=== PATIENT | female | born 1980 | race Caucasian/White ===

== ENCOUNTER 2023-03-15 16:46 | Emergency (ER) | payer OTHER, SELFPAY ==
--- NOTE | 2023-03-15 17:11 | ED_ITS ---
HPI - Medical Clearance General Chief complaint: General Medical Stated complaint: medical clearance Time Seen by Provider: 03/15/23 19:12 Source: patient, RN notes reviewed and old records reviewed Mode of arrival: ambulatory History of Present Illness HPI Narrative: 42-year-old female w/PMHx substance abuse on [employer] currently in detox program presenting to the ED for medical clearance. Patient was found with her old Rx for Klonopin that she stopped taking and admits to taking 1 dose for the past 3 days & was sent for medical clearance to return to program. Denies other illicit substances or ETOH, SI or HI MD complaint: medical clearance requested Related Information Allergies Allergy/AdvReac Type Severity Reaction Status Date / Time No Known Allergies Allergy Verified 03/15/23 17:15 Review of Systems 2 Review of Systems: Constitutional: No Fever, No Chills ENT/Mouth: No Ear Pain, No Nasal Congestion, No sore throat, No Rhinorrhea, No Swallowing Difficulty Cardiovascular: No Chest Pain, No SOB Respiratory: No Cough Gastrointestinal: No Nausea, No Vomiting, No Abdominal pain Musculoskeletal: No joint pain, No Myalgias Skin: No Skin Lesions, No rash Neuro: No Weakness Yes all other systems are reviewed and are negative Constitutional: Constitutional: Reports as per [facility] Past Medical History Attestation statement: The following information was validated with the patient. Source: old records reviewed Physical Exam 2 Vital Signs: Vital Signs: Last Vital Signs Temp 96.4 F L 03/15/23 19:15 Pulse 71 03/15/23 19:15 Resp 14 03/15/23 19:15 BP 122/77 03/15/23 19:15 Pulse Ox 99 03/15/23 19:15 O2 Del Method Room Air 03/15/23 19:15 BMI result Body Mass Index 36.4 Const: General: cooperative, healthy appearing and no acute distress O rientation/consciousness: patient oriented x3 Limitations: no limitations HEENT: Head: Yes normal to inspection and Yes atraumatic Ears: hearing grossly normal bilaterally General nose exam: Normal external nose present Face and sinus: Yes normal facial exam Eyes: General: appearance normal, both eyes and all related structures EOM: EOMs intact bilaterally Neck: Neck: Yes normal visual inspection and Yes no meningeal signs Resp: Effort & Inspection: normal respiratory effort and no respiratory distress Cardio: Rate: regular rate Skin: Rashes: no rashes Wounds: no wounds Neuro: General: patient oriented x3, tone normal and no meningeal signs C ranial nerves: Yes CN's II-XII intact bilaterally Gait exam (Neuro): Normal gait present Extrem: General: Yes normal to inspection Psych: Attitude: cooperative Thought content: suicidality and no homicidality Course Course Course Narrative: RME: 42-year-old female w/PMHx substance abuse on [employer] currently in detox program presenting to the ED for medical clearance. Patient was found with her old Rx for Klonopin that she stopped taking and admits to taking 1 dose for the past 3 days. denies other illicit substances or ETOH, SI or HI Labs, MEJIA, Ethanol ordered Full HPI, ROS and PE to be performed by primary ED provider. -1912--mild elevation in AST/ALT. No available priors to compare. Tox screen negative. Patient is medically cleared to return to program Results discussed with patient including worrisome signs and symptoms and strict return precautions, and when to return to the emergency department. They verbalized understanding and feel safe for discharge at this time. Medical Decision Making Medical Decision Making [facility] Narrative: 42-year-old female w/PMHx substance abuse on [employer] currently in detox program presenting to the ED for medical clearance. Patient was found with her old Rx for Klonopin that she stopped taking and admits to taking 1 dose for the past 3 days & was sent for medical clearance to return to program. On exam vital signs stable, NAD, nontoxic appearing. Concern for substance abuse Plan: Labs, drug screen Please refer to course for remaining clinical decision making, interpretation of labs/imaging results, and discussions with consultants and/or family members. Differential Diagnosis Differential Diagnoses: The differential diagnosis associated with the presentation includes As above Lab Data [facility] Lab Attestation statement: I reviewed the patient's lab results. 03/15/23 18:35 03/15/23 18:35 Labs: Lab Results 03/15/23 03/15/23 Range/Units 18:32 18:35 WBC 7.3 (4.8-10.8) X10*3/uL RBC 4.03 L (4.20-5.50) X10*6/uL Hgb 11.5 L (12.0-16.0) g/dl Hct 35.6 L (37.0-47.0) % MCV 88.3 (80.0-98.0) fL MCH 28.5 (27.0-33.0) pg MCHC 32.3 (31.0-35.0) g/dl RDW 12.3 (11.0-16.0) % Plt Count 269 (160-400) X10*3/uL MPV 9.6 (9.4-12.3) fL Immature Gran % (Auto) 1.1 H (0.0-0.4) % Neut % (Auto) 53.5 (45-73) % Lymph % (Auto) 28.0 (20-40) % [place] % (Auto) 9.1 (2-11) % Eos % (Auto) 7.6 H (0-4) % Baso % (Auto) 0.7 (0-2) % Lymph # (Auto) 2.1 (1.2-4.9) X10*3/uL [place] # (Auto) 0.7 (0.1-1.2) X10*3/uL Eos # (Auto) 0.6 H (0.0-0.4) X10*3/uL Baso # (Auto) 0.1 (0.0-0.2) X10*3/uL Abs Immat Gran (auto) 0.08 H (0.00-0.03) X10*3/uL Absolute Neuts (auto) 3.9 (2.0-8.3) x10*3/uL Absolute Nucleated RBC 0.000 (0.0-0.012) X10*3/uL Nucleated RBC % (auto) 0.0 (0.0-0.2) /100WBC Sodium 139 (135-145) mmol/L Potassium 4.5 (3.3-5.1) mmol/L Chloride 101 (96-108) mmol/L Carbon Dioxide 28 (22-29) mmol/L Anion Gap 15 (12-20) BUN 18 H (9-16) mg/dL Creatinine 0.80 (0.5-1.4) mg/dL Estim Creat Clear Calc 105.1 Estimated GFR > 60 Random Glucose 76 (60-115) mg/dL Calcium 10.2 (8.4-10.2) mg/dL Total Bilirubin 0.2 (0.0-1.0) mg/dL Direct Bilirubin < 0.2 (0.0-0.5) mg/dL AST 68 H (5-31) U/L ALT 44 H (0-31) U/L Alkaline Phosphatase 58 (39-117) U/L Total Protein 7.4 (6.5-8.0) g/dL Albumin 4.4 (3.5-5.0) g/dL Urine Opiates Screen Not Detected (Not Detect) Urine Fentanyl Screen Not Detected (Not Detect) Ur Barbiturates Screen Not Detected (Not Detect) Ur Phencyclidine Scrn Not Detected (Not Detect) Ur Amphetamines Screen Not Detected (Not Detect) U Benzodiazepines Scrn Not Detected (Not Detect) Urine Cocaine Screen Not Detected (Not Detect) U Marijuana (THC) Screen Not Detected (Not Detect) Ethyl Alcohol < 10 mg/dL External Record Review External record reviewed: Inpatient record, Office record, Outpatient record, Prior outpatient labs, Prior outpatient radiology, Primary care record and Outside ED record Tests considered The following testing was considered but not selected: As above Chronic Conditions Patient?s care impacted by: Other Social Determinants Patient?s care significantly limited by Social Determinants of Health including: Low income, Alcoholism and drug addiction in family and Problems related to primary support group Discharge Plan Discharge Clinical Impression: Encounter for medical clearance for patient hold Patient Disposition: Home, Self-Care Instructions: Medical Clearance for Psychiatric Care (ED) Additional Instructions: You're medically cleared to return to your program Your blood work and tox screen were reassuring Referrals: [facility] [Provider Group] [facility] [Outside]
[2023-03-15 17:13] VITALS: BP 149/65; PULSE 67; RESP 18; TEMP 36.2; O2SAT 98; BMI 36.4
[2023-03-15 18:40] LABS: MANUAL DIFF FLAG NO
[2023-03-15 18:43] LABS: Basophils Absolute Auto 0.1 X10*3/uL (0.0-0.2); Basophils Percent Auto 0.7 % (0-2); Eosinophils Absolute Auto 0.6 X10*3/uL (0.0-0.4); Eosinophils Percent Auto 7.6 % (0-4); Hematocrit 35.6 % (37.0-47.0); Hemoglobin 11.5 g/dl (12.0-16.0); Imm Gran Abs Auto 0.08 X10*3/uL (0.00-0.03); Imm Gran Pct Auto 1.1 % (0.0-0.4); Lymphocytes Absolute Auto 2.1 X10*3/uL (1.2-4.9); Mean Corpuscular HGB Conc 32.3 g/dl (31.0-35.0); Mean Corpuscular Hemoglobin 28.5 pg (27.0-33.0); Mean Corpuscular Volume 88.3 fL (80.0-98.0); Mean Platelet Volume 9.6 fL (9.4-12.3); Monocytes Absolute Auto 0.7 X10*3/uL (0.1-1.2); Monocytes Percent Auto 9.1 % (2-11); Neutrophils Absolute Auto 3.9 x10*3/uL (2.0-8.3); Neutrophils Percent Auto 53.5 % (45-73); Platelet Count 269 X10*3/uL (160-400); Red Blood Count 4.03 X10*6/uL (4.20-5.50); Red Cell Distribution Width 12.3 % (11.0-16.0); White Blood Count 7.3 X10*3/uL (4.8-10.8)
[2023-03-15 18:50] LABS: Amphetamine Screen Urine Not Detected (Not Detect); Barbiturates, Urine Not Detected (Not Detect); Benzodiazepines Screen Urine Not Detected (Not Detect); Cannabinoid Screen Urine Not Detected (Not Detect); Cocaine Screen Urine Not Detected (Not Detect); Fentanyl, urine Not Detected (Not Detect); Opiate Screen Urine Not Detected (Not Detect); Phencyclidine Screen Urine Not Detected (Not Detect)
[2023-03-15 19:02] LABS: Alanine Aminotransferase 44 U/L (0-31); Albumin Level 4.4 g/dL (3.5-5.0); Alkaline Phosphatase 58 U/L (39-117); Anion Gap 15 (12-20); Aspartate Amino Transferase 68 U/L (5-31); Bilirubin Direct < 0.2 mg/dL (0.0-0.5); Bilirubin Total 0.2 mg/dL (0.0-1.0); Blood Urea Nitrogen 18 mg/dL (9-16); Calcium 10.2 mg/dL (8.4-10.2); Carbon Dioxide 28 mmol/L (22-29); Chloride 101 mmol/L (96-108); Creatinine Clr Calc Pharmacy 105.1; Estimated Glomerular Filt Rate > 60; Ethanol < 10 mg/dL; Glucose Random 76 mg/dL (60-115); Potassium 4.5 mmol/L (3.3-5.1); Sodium 139 mmol/L (135-145); Total Protein 7.4 g/dL (6.5-8.0)
[2023-03-15 19:15] VITALS: BP 122/77; PULSE 71; RESP 14; TEMP 35.8; O2SAT 99
== END 2023-03-15 19:52 | disposition home or self-care (01) ==
PROVIDERS: Physician Assistant; Emergency Provider Emergency Medicine
DX: Z02.2 Encounter for examination for admission to residential institution (principal); F11.120 Opioid abuse with intoxication, uncomplicated
CPT/HCPCS: 36415; 80048; 80076; 80307; 85025; 99282; 99283

== ENCOUNTER 2023-11-28 13:22 | Emergency (ER) | payer OTHER, SELFPAY ==
[2023-11-28 13:31] VITALS: BP 142/84; PULSE 65; O2SAT 96
[2023-11-28 13:36] VITALS: BP 102/59; PULSE 63; RESP 14; TEMP 36.4; O2SAT 95
--- NOTE | 2023-11-28 13:39 | ED.GENADULT ---
HPI - General Adult General Chief complaint: Extremity Problem Stated complaint: BILAT LEG EDEMA X 3 WKS PER EMS Time Seen by Provider: 11/28/23 13:31 History of Present Illness ED Provider: Dr. Looney HPI narrative: 43 y/o F patient; H substance abuse on Methadone; presents reporting several months of bilaterak lower extremity swelling. The patient states she was started on a one month supply on a water pill in April. She has not been seen by her PCP since this time. She recently over the last several weeks has had worsening of the bilateral lower extremity swelling. She denies: fever or chills, SOB, cough/congestion, chest pain, nausea/vomiting, abdominal pain, syncope. She denies any self or family history of blood clots. Patient asked if water pill was Lasix - and she stated it was. She stated she was on 10mg and then increased to 20mg. Related Data Previous Rx's ?Medication ?Instructions ?Recorded furosemide 20 mg tablet (Lasix) 20 mg PO DAILY 30 days #30 tabs 11/28/23 furosemide 20 mg tablet (Lasix) 20 mg PO DAILY 30 days #30 tabs 11/28/23 Allergies Allergy/AdvReac Type Severity Reaction Status Date / Time No Known Allergies Allergy Verified 11/28/23 14:02 Review of Systems Review of Systems: Yes all other systems are reviewed and are negative [facility] Past Medical History Attestation statement: The following information was validated with the patient. Source: unable to obtain Social History Social History Advance Directives: No Physical Exam ED Vital Signs: Vital Signs - 24 hr 11/28/23 13:36 Temperature 97.6 F Pulse Rate 63 Respiratory Rate 14 Blood Pressure 102/59 L Pulse Oximetry 95 Oxygen Delivery Method Room Air BMI result Body Mass Index 42.4 Patient is afebrile and hemodynamically stable. Const General: cooperative and no acute distress HENMT Head: Yes normal to inspection and Yes atraumatic Eyes General: appearance normal, both eyes and all related structures Pupils: Equal, round and reactive pupils present EOM: EOMs intact bilaterally Neck Neck: Yes normal visual inspection, Yes full ROM, Yes supple and No tender Chest Chest palpation & inspection: normal inspection of the chest and normal palpation of entire chest wall Resp Effort & Inspection: normal respiratory effort, able to speak in complete sentences, no cough and no respiratory distress Auscultation: clear to auscultation bilaterally Cardio Rate: regular rate Rhythm: regular rhythm Peripheral pulses: Peripheral pulses 2+ throughout GI Inspection: Yes normal to inspection, No Abdominal wall edema and No distended Palpation (GI): Soft to palpation, not firm, nontender, no guarding and not rigid Auscultation: normal bowel sounds General: Yes Bimanual renal exam normal bilaterally Neuro Cranial nerves: Yes Equal, round and reactive pupils present Extrem Other: 2+ bilateral lower extremity edema without posterior calf tenderness, NVI, FROM. Course Course Course Narrative: Patient is afebrile and hemodynamically stable. Will obtain EKG and basic labs. Given symmetric nature of lower extremity edema - lower suspicion for DVT however will obtain d-dimer. Reevaluation(s) Reevaluation #1: Laboratory studies reviewed. Mild baseline anemia (11.2). D-dimer within unremarkable levels at 199. Remainder of labs unremarkable. History and exam consistent with lower extremity bilateral edema. No overt signs of CHF. BNP 62. Plan: Discharge to home with PCP follow up Return precautions given Rx Lasix 20mg OD sent to pharmacy for 30 days Medical Decision Making Lab Data 11/28/23 14:50 11/28/23 14:50 Labs: Lab Results 11/28/23 11/28/23 Range/Units 14:50 15:51 WBC 7.0 (4.8-10.8) X10*3/uL RBC 4.14 L (4.20-5.50) X10*6/uL Hgb 11.2 L (12.0-16.0) g/dl Hct 35.1 L (37.0-47.0) % MCV 84.8 (80.0-98.0) fL MCH 27.1 (27.0-33.0) pg MCHC 31.9 (31.0-35.0) g/dl RDW 13.9 (11.0-16.0) % Plt Count 254 (160-400) X10*3/uL MPV 9.8 (9.4-12.3) fL Immature Gran % (Auto) 0.3 (0.0-0.4) % Neut % (Auto) 61.9 (45-73) % Lymph % (Auto) 21.9 (20-40) % [place] % (Auto) 7.0 (2-11) % Eos % (Auto) 8.3 H (0-4) % Baso % (Auto) 0.6 (0-2) % Lymph # (Auto) 1.5 (1.2-4.9) X10*3/uL [place] # (Auto) 0.5 (0.1-1.2) X10*3/uL Eos # (Auto) 0.6 H (0.0-0.4) X10*3/uL Baso # (Auto) 0.0 (0.0-0.2) X10*3/uL Abs Immat Gran (auto) 0.02 (0.00-0.03) X10*3/uL Absolute Neuts (auto) 4.4 (2.0-8.3) x10*3/uL Absolute Nucleated RBC 0.000 (0.0-0.012) X10*3/uL Nucleated RBC % (auto) 0.0 (0.0-0.2) /100WBC D-Dimer High Sensitivty 199 NG/ML Sodium 140 (135-145) mmol/L Potassium 3.6 (3.3-5.1) mmol/L Chloride 103 (96-108) mmol/L Carbon Dioxide 30 H (22-29) mmol/L Anion Gap 11 L (12-20) BUN 15 (9-16) mg/dL Creatinine 0.75 (0.5-1.4) mg/dL Estim Creat Clear Calc 121.0 Estimated GFR > 60 Random Glucose 110 (60-115) mg/dL Calcium 9.9 (8.4-10.2) mg/dL Total Bilirubin 0.2 (0.0-1.0) mg/dL Direct Bilirubin < 0.2 (0.0-0.5) mg/dL AST 21 (5-31) U/L ALT 26 (0-31) U/L Alkaline Phosphatase 78 (39-117) U/L B-Natriuretic Peptide 62 (<100) pg/mL Total Protein 7.0 (6.5-8.0) g/dL Albumin 3.9 (3.5-5.0) g/dL Beta HCG, Quant < 2 mIU/mL Independent Interpretation I performed an independent interpretation of an: EKG Interpretation: SB 42BPM with QTc 460. Discharge Plan Discharge Clinical Impression: Lower extremity edema Patient Disposition: Home, Self-Care Instructions: Leg Edema (ED) Additional Instructions: As we discussed, you were seen for lower extremity swelling. Your labs were reassuring. You will be started on a prescription for Lasix 20mg once a day for the next 30 days. You should be seen by your PCP during this time frame to repeat your labs and adjust this prescription as needed. Return to the emergency department for: Difficulty breathing Chest pain Passing out Prescriptions: New furosemide [Lasix] 20 mg tablet 20 mg PO DAILY 30 Days Qty: 30 0RF furosemide [Lasix] 20 mg tablet 20 mg PO DAILY 30 Days Qty: 30 0RF Print Language: [place]
--- NOTE | 2023-11-28 13:51 | ECG_ITS ---
Test Reason : Arhythmia Blood Pressure : / mmHG Vent. Rate : 042 BPM Atrial Rate : 042 BPM P-R Int : 150 ms QRS Dur : 094 ms QT Int : 552 ms P-R-T Axes : 050 035 051 degrees QTc Int : 460 ms Marked sinus bradycardia with sinus arrhythmia Nonspecific ST and T wave abnormality Abnormal ECG No previous ECGs available Referred By: Anyi Looney Electronically Signed By:ANTOINETTE DIAZ
[2023-11-28 14:01] VITALS: BMI 42.4
--- NOTE | 2023-11-28 14:39 | PC.NURSE ---
HCG added on to labs.
[2023-11-28 14:56] LABS: MANUAL DIFF FLAG NO
[2023-11-28 14:57] LABS: Basophils Percent Auto 0.6 % (0-2); Eosinophils Absolute Auto 0.6 X10*3/uL (0.0-0.4); Eosinophils Percent Auto 8.3 % (0-4); Hematocrit 35.1 % (37.0-47.0); Hemoglobin 11.2 g/dl (12.0-16.0); Imm Gran Abs Auto 0.02 X10*3/uL (0.00-0.03); Imm Gran Pct Auto 0.3 % (0.0-0.4); Lymphocytes Absolute Auto 1.5 X10*3/uL (1.2-4.9); Lymphocytes Percent Auto 21.9 % (20-40); Mean Corpuscular HGB Conc 31.9 g/dl (31.0-35.0); Mean Corpuscular Hemoglobin 27.1 pg (27.0-33.0); Mean Corpuscular Volume 84.8 fL (80.0-98.0); Mean Platelet Volume 9.8 fL (9.4-12.3); Monocytes Absolute Auto 0.5 X10*3/uL (0.1-1.2); Neutrophils Absolute Auto 4.4 x10*3/uL (2.0-8.3); Neutrophils Percent Auto 61.9 % (45-73); Platelet Count 254 X10*3/uL (160-400); Red Blood Count 4.14 X10*6/uL (4.20-5.50); Red Cell Distribution Width 13.9 % (11.0-16.0)
[2023-11-28 15:04] LABS: D Dimer High Sensitivity 199 NG/ML
[2023-11-28 15:12] LABS: Alanine Aminotransferase 26 U/L (0-31); Albumin Level 3.9 g/dL (3.5-5.0); Alkaline Phosphatase 78 U/L (39-117); Anion Gap 11 (12-20); Aspartate Amino Transferase 21 U/L (5-31); Bilirubin Direct < 0.2 mg/dL (0.0-0.5); Bilirubin Total 0.2 mg/dL (0.0-1.0); Blood Urea Nitrogen 15 mg/dL (9-16); Calcium 9.9 mg/dL (8.4-10.2); Carbon Dioxide 30 mmol/L (22-29); Chloride 103 mmol/L (96-108); Estimated Glomerular Filt Rate > 60; Glucose Random 110 mg/dL (60-115); Potassium 3.6 mmol/L (3.3-5.1); Sodium 140 mmol/L (135-145)
[2023-11-28 15:16] LABS: HCG Quantitative < 2 mIU/mL
[2023-11-28 16:25] LABS: B Type Natriuretic Peptide 62 pg/mL (<100)
[2023-11-28 16:39] VITALS: BP 95/73; PULSE 55; RESP 12; TEMP 36.4; O2SAT 94
[2023-11-28 17:03] VITALS: BP 95/73; PULSE 55; RESP 12; TEMP 36.4; O2SAT 94
== END 2023-11-28 17:04 | disposition home or self-care (01) ==
PROVIDERS: Emergency Provider Emergency Medicine
DX: R60.9 Edema, unspecified (principal); M79.89 Other specified soft tissue disorders; I49.9 Cardiac arrhythmia, unspecified
CPT/HCPCS: 36415; 80048; 80076; 83880; 84702; 85025; 85379; 93005; 99283; 99284

== ENCOUNTER → 2023-11-28 13:51 | Outpatient (BNV) | payer OTHER, SELFPAY | PROVIDERS: Emergency Provider Emergency Medicine; Visit Provider Internal Medicine | DX: I49.9 Cardiac arrhythmia, unspecified (principal) | CPT/HCPCS: 93010 ==